=== PATIENT | female | born 1980 | race Caucasian/White ===

== ENCOUNTER 2016-07-19 13:54 | Emergency (ER) | payer OTHER | END 2016-07-19 19:10 | disposition home or self-care (01) | LOC: FER 13:54 | DX: S52.124A Nondisplaced fracture of head of right radius, initial encounter for closed fracture (principal); Z23 Encounter for immunization; Z88.5 Allergy status to narcotic agent; Z88.6 Allergy status to analgesic agent; W17.89XA Other fall from one level to another, initial encounter; Y92.009 Unspecified place in unspecified non-institutional (private) residence as the place of occurrence of the external cause | CPT/HCPCS: 70450; 73060; 73070; 90471; 90715 ==

== ENCOUNTER 2016-07-21 14:19 | Emergency (ER) | payer OTHER | END 2016-07-21 14:55 | disposition left against medical advice (07) | LOC: FER 14:19 | DX: M79.601 Pain in right arm (principal); Z53.8 Procedure and treatment not carried out for other reasons ==